=== PATIENT | female | born 1990 | race Caucasian/White ===

== ENCOUNTER 2020-01-09 00:05 | Inpatient (IN) | payer BC ==
[~2020-01-09] VITALS: Ht 163.8 cm; Wt 109.3 kg
--- NOTE | 2020-01-10 20:12 | NUR ---
01/10/202011 Yamil Tellez FBC RN IN ROOM AT ALL TIMES WITH THIS RN WHILE DOING ASSESMENTS. C/O DIZZYNESS AND LOW BLOOD PRESSURE RESOLVED AT TIME OF TRANSFER OF CARE. FBC RN ASSUMED CARE.
--- NOTE | 2020-01-11 15:19 | PR ---
[facility] [address] [facility] [place], [place] [address] Signed PP Progress Notes Datetime Report Generated by CPN: 01/11/2020 10:34 SUBJECTIVE: [id number] Pain: Within Normal Limits Nausea/Vomiting: Denies Flatus: No Bowel Movement: No Vital Signs: [id number] Cardiovascular: Normal Respiratory: Normal Abdomen/Uterus: Normal Lochia: Normal Extremities: Normal Incision: Normal Progress: Normal Exam Comments: RRR, 1+ pitting BLLE edema No dyspnea FF below U Incision c/d/i, no erythema, telfa in place IMPRESSION/PLAN/PROCEDURES: [id number] Impression: Normal Progression Plan: Continue Present Management Procedures: Rhogam Progress Notes: *POD#1 s/p PLTCS for intolerance to labor remote from delivery Progressing well post-op Scales still in place, anticipate ambulation/scales removal/voiding trial later today Tolerating regular diet Lochia light Incision healing well Pain well controlled with orals -Encourage ice to incision *Acute blood loss anemia on chronic anemia of Asymptomatic, VSS -Anticipate oral iron supplementation once having BM *O neg maternal blood type Baby O positive -Anticipate rhogam today GDM - well controlled on insulin -follow-up glucose tolerance test 6 wk PP *Electronically Signed* 01/11/20 1034 MARIIA CRISTOBAL DO PATIENT NAME: YOKO CARABALLO PROGRESS NOTE DATE OF : [birth year] PHYSICIAN: MARIIA CRISTOBAL DO RPT #: [id number] REPORT IS CONFIDENTIAL AND NOT TO BE RELEASED WITHOUT AUTHORIZATION [facility] [address] [place], [place] [address] Signed Signing Physician: Mariia Cristobal DO Copies: ~ *Electronically Signed* 01/11/20 1034 MARIIA CRISTOBAL DO PATIENT NAME: YOKO CARABALLO PROGRESS NOTE DATE OF : [birth year] PHYSICIAN: MARIIA CRISTOBAL DO RPT #: [id number] REPORT IS CONFIDENTIAL AND NOT TO BE RELEASED WITHOUT AUTHORIZATION
--- NOTE | 2020-01-12 11:18 | PR ---
[facility] [address] [place], [place] [address] Signed PP Progress Notes Datetime Report Generated by CPN: 01/12/2020 11:18 SUBJECTIVE: [id number] Pain: Within Normal Limits Nausea/Vomiting: Denies Flatus: Yes Bowel Movement: Yes Vital Signs: [id number] Vital Signs: Reviewed; Within Normal Limits EXAM: Met Cardiovascular: Normal Respiratory: Normal Abdomen/Uterus: Normal Lochia: Normal Extremities: Normal Incision: Normal Progress: Normal Exam Comments: Doing well RRR No dyspnea Incision c/d/i, lalit in place FFBU Trace BLLE edema IMPRESSION/PLAN/PROCEDURES: [id number] Impression: Normal Progression Plan: Continue Present Management; Discharge Procedures: Rhogam Progress Notes: POD#2 s/p PLTCS for intolerance to labor remote from delivery GDM-insulin, well-controlled True knot in umbilical cord Acute blood loss anemia on chronic anemia of - asymptomatic -start oral iron now that she is having BM, discussed continuing bowel care while on oral iron Pt requesting DC to home. Anticipate DC to home tonight 48 hrs postop, pt may stay tonight if she changes her mind Signing Physician: Jeanette Cristobal DO *Electronically Signed* 01/12/20 1118 JEANETTE CRISTOBAL DO PATIENT NAME: YOKO CARABALLO PROGRESS NOTE DATE OF : [birth year] PHYSICIAN: JEANETTE CRISTOBAL DO RPT #: [id number] REPORT IS CONFIDENTIAL AND NOT TO BE RELEASED WITHOUT AUTHORIZATION [facility] [address] [place] [id number] Signed Copies: ~ *Electronically Signed* 01/12/20 1118 JEANETTE CRISTOBAL DO PATIENT NAME: YOKO CARABALLO PROGRESS NOTE DATE OF : [birth year] PHYSICIAN: JEANETTE CRISTOBAL DO RPT #: [id number] REPORT IS CONFIDENTIAL AND NOT TO BE RELEASED WITHOUT AUTHORIZATION
--- NOTE | 2020-01-13 03:26 | OR ---
[facility] [address] [place], [place] [address] Signed DATE OF OPERATION: 01/10/2020 SURGEON: Mariia Cristobal DO Electronically Signed By: MARIIA CRISTOBAL DO 01/13/20 0326 PATIENT NAME: YOKO CARABALLO OPERATIVE REPORT DATE OF : 88 REPORT #: [id number] PHYSICIAN: MARIIA CRISTOBAL DO PCP: KEE VU MD REPORT IS CONFIDENTIAL AND NOT TO BE RELEASED WITHOUT AUTHORIZATION [facility] [address] [place], [place] [address] Signed DREDGE MECHANIC: Quita Howe MD PREOPERATIVE DIAGNOSES: 1. intolerance to labor, remote from delivery. 2. Gestational diabetes, on insulin. 3. 39 weeks gestation. POSTOPERATIVE DIAGNOSES: 1. intolerance to labor, remote from delivery. 2. Gestational diabetes, on insulin. 3. 39 weeks gestation. 4. True knot in the umbilical cord. PROCEDURE: Primary low transverse section. ANESTHESIA: Epidural. EBL: 550 mL. LINES: None. DRAINS: Moreno catheter. SPECIMENS: 1. Placenta. 2. Segment of cord 3. Cord blood FINDINGS: Term viable female , weighing 7 pounds and 9 ounces, Apgars 8 and 9. True knot in the umbilical cord, body cord around infant, otherwise normal-appearing placenta, normal uterus, and bilateral tubes and ovaries. INDICATIONS: The patient is a 29-year-old , who presented to [facility] on 01/09/2020, Electronically Signed By: MARIIA CRISTOBAL DO 01/13/20 0326 PATIENT NAME: YOKO CARABALLO OPERATIVE REPORT DATE OF : [birth year] REPORT #: [id number] PHYSICIAN: MARIIA CRISTOBAL DO PCP: KEE VU MD REPORT IS CONFIDENTIAL AND NOT TO BE RELEASED WITHOUT AUTHORIZATION [address] [address] Signed for scheduled medical induction of labor for gestational diabetes, on insulin. She was induced with cervical ripening with Cytotec followed by amniotomy, followed by Pitocin. After initiation of Pitocin, it had to be turned off and restarted multiple times due to late, prolonged and variable decelerations. The patient did receive an epidural. Over the course of over 5 hours, she failed to make progress beyond 3.5 cm without an increase in station of head. Risks, benefits, and alternatives to primary cesarian were discussed with the patient and the father of the baby, who was also present at bedside and they elected to proceed with delivery. PROCEDURE IN DETAIL: The patient was taken to the operating room, where her epidural was bolused. She was given 2 g Ancef, 500 mg azithromycin, and 1 g of TXA preoperatively. She was placed in the supine position with leftward tilt and prepped and draped in normal sterile fashion. Adequate anesthesia was confirmed. Pfannenstiel incision was made with the scalpel and carried down to the underlying layer of fascia. The fascia was incised using scalpel in midline and extended laterally with Nation scissors. Superior margin of the fascia was grasped with Kochers and elevated, and underlying rectus muscle was dissected off bluntly and sharply with Nation scissors. In the similar fashion, the inferior margin was grasped with Kochers, elevated, and rectus was dissected off bluntly and sharply with Nation scissors. Peritoneum was entered bluntly at midline and extended vertically with lateral retraction. Nicolas retractor was positioned without difficulty and hysterotomy was made with a scalpel above the bladder reflection. Hysterotomy was extended laterally with superior and inferior traction. Infant's head was then easily and gently elevated to the hysterotomy and the infant was delivered atraumatically. Body cord was noted and a true knot was noted in the umbilical cord. The cord was immediately doubly clamped and cut and the baby was handed off to the waiting Nursery RN. A segment of cord was obtained and cord blood was collected for type and Nela. Placenta was removed with gentle traction on the umbilical cord and delivered easily. Uterus was cleared of membranes and hysterotomy was closed with 0 Monocryl in a running locked fashion. An imbricating layer of closure was then completed with with 0 Monocryl. Additional oozing was noted at the right apex of the incision. A ezkeum-eo-gwzdw stitch with 0 Monocryl was placed with resulting hemostasis noted. Gutters were cleared of clots and the pelvis was irrigated with warm sterile saline and hemostasis was again noted at the hysterotomy. Nicolas retractor was removed. ACell sheet was applied over the hysterotomy. Peritoneum was closed in a running fashion with 2-0 Vicryl. Rectus was reapproximated with 0 Vicryl in a simple interrupted fashion x3. Small bleeding vessels that were noted were cauterized with Bovie cautery and ACell powder was applied over the rectus muscle. The fascia was closed with 0 Vicryl in a running fashion with 2 pieces starting laterally at each apex Electronically Signed By: MARIIA CRISTOBAL DO 01/13/20 0326 PATIENT NAME: YOKO CARABALLO OPERATIVE REPORT DATE OF : 88 REPORT #: [id number] PHYSICIAN: MARIIA CRISTOBAL DO PCP: KEE VU MD REPORT IS CONFIDENTIAL AND NOT TO BE RELEASED WITHOUT AUTHORIZATION [facility] [address] [place], [place] [address] Signed and working towards midline in a running fashion. Subcutaneous vessels that were bleeding were cauterized with Bovie cautery and subcutaneous layer was reapproximated with 3-0 Vicryl in simple interrupted fashion. Skin was closed with skin clips. Uterus was creded with minimal bleeding and dilation to 3cm noted. The incision was dressed with telfa, ABD pad, and gauze padding. Sponge and instrument counts were correct x2. The patient tolerated procedure very well. Mother and baby were allowed to recover together in the labor room. Mariia Cristobal DO EMZ/MODL /[id number] Copies: ~ Electronically Signed By: MARIIA CRISTOBAL DO 01/13/20 0326 PATIENT NAME: YOKO CARABALLO OPERATIVE REPORT DATE OF : [birth year] REPORT #: [id number] PHYSICIAN: MARIIA CRISTOBAL DO PCP: KEE VU MD REPORT IS CONFIDENTIAL AND NOT TO BE RELEASED WITHOUT AUTHORIZATION
== END 2020-01-12 18:40 | disposition home or self-care (01) | DRG 787 ==
LOC: FBC 00:05
PROVIDERS: ADMIT Obstetrics & Gynecology; ATTEND Obstetrics & Gynecology
PROC: 3E0P7VZ Introduction of Hormone into Female Reproductive, Via Natural or Artificial Opening (ICD-10-PCS; 2020-01-09)
PROC: 10907ZC Drainage of Amniotic Fluid, Therapeutic from Products of Conception, Via Natural or Artificial Opening (ICD-10-PCS; 2020-01-10)
PROC: 10D00Z1 Extraction of Products of Conception, Low, Open Approach (ICD-10-PCS; principal; 2020-01-10 18:34)
PROC: 3E0234Z Introduction of Serum, Toxoid and Vaccine into Muscle, Percutaneous Approach (ICD-10-PCS; 2020-01-11)
DX: O24.424 Gestational diabetes mellitus in childbirth, insulin controlled (principal); D62 Acute posthemorrhagic anemia; O63.9 Long labor, unspecified; Z3A.39 39 weeks gestation of pregnancy; Z37.0 Single live birth; O76 Abnormality in fetal heart rate and rhythm complicating labor and delivery; O69.2XX0 Labor and delivery complicated by other cord entanglement, with compression, not applicable or unspecified; O99.02 Anemia complicating childbirth; D64.9 Anemia, unspecified; O26.893 Other specified pregnancy related conditions, third trimester; Z67.41 Type O blood, Rh negative; O36.63X0 Maternal care for excessive fetal growth, third trimester, not applicable or unspecified; O32.2XX0 Maternal care for transverse and oblique lie, not applicable or unspecified; O99.344 Other mental disorders complicating childbirth; F32.9 Major depressive disorder, single episode, unspecified; F41.9 Anxiety disorder, unspecified; Z79.899 Other long term (current) drug therapy
CPT/HCPCS: 01961; 36415; 83030; 85027; 86850; 86900; 86901; J1815; J1885; J2274; J2405; J2590; J2790; J2795; J3010; J7121

== ENCOUNTER 2022-01-19 21:14 | Emergency (ER) | payer BC ==
[~2022-01-19] VITALS: Ht 165.1 cm; Wt 110.1 kg
--- OUTSIDE RECORDS SUMMARY | 2022-01-19 21:16 | XMS ---
PreManage Notification: YOKO CARABALLO Security In Service Coordinator Events No recent Security Events currently on file CRITERIA MET - PDMP CARE PROVIDERS [facility] Current PHONE: [phone] Mariano has no Care Guidelines for this patient. EMelonie VISIT COUNT (12 MO.) 1 IZABEL Chaudhary TOTAL 1 NOTE: Visits indicate total known visits. ED/UCC VISIT TRACKING (12 MO.) 01/19/2022 21:14 IZABEL Juarez OR TYPE: Emergency COMPLAINT: - NAUSEA, DIARRHEA INPATIENT VISIT TRACKING (12 MO.) No inpatient visits to display in this time frame [email or web address]
[2022-01-19] MEDS ORDERED: ADDERALL 5 MG TA5 MG PO (21:37)
[2022-01-19] MEDS ORDERED: ADDERALL XR 2525 MG PO (21:37)
[2022-01-19] MEDS ORDERED: FLUOXETINE HCL40 MG PO (21:37)
[2022-01-19] MEDS ORDERED: ONDANSETRON ODT8 MG PO (23:19)
== END 2022-01-19 23:34 | disposition home or self-care (01) ==
LOC: ED 21:14
DX: K52.9 Noninfective gastroenteritis and colitis, unspecified (principal); F90.9 Attention-deficit hyperactivity disorder, unspecified type; Z79.899 Other long term (current) drug therapy
CPT/HCPCS: 36415; 80053; 83690; 83735; 84703; 85025; A9270; J2405; J7030

== ENCOUNTER 2025-01-14 19:00 | Observation (INO) | payer BC ==
[~2025-01-14] VITALS: Ht 165.1 cm; Wt 97.2 kg
[~2025-01-14 19:00] MED LIST: ADDERALL 5 MG TA5 MG PO; ADDERALL XR 2525 MG PO; FLUOXETINE HCL40 MG PO; ONDANSETRON ODT8 MG PO
[2025-01-14 21:12] LABS: BASOPHILS 0.3 % (0.1-1.2); EOSINOPHILS 0.1 % (0.7-5.8); LYMPHOCYTES 10.4 % (19.3-51.7); MCH 28.9 PG (25.6-32.2); MCHC 32.8 g/dL (32.2-35.5); MCV 88.3 fL (79.4-94.8); MONOCYTES 4.5 % (4.7-12.5); NEUTROPHILS 84.4 % (34.0-71.1); RBC 5.29 M/uL (3.93-5.22)
[2025-01-14] MEDS ORDERED: MORPHINE SULFATE 4 MG/ML VIAL IV ONE (21:15)
[2025-01-14] MEDS ORDERED: SODIUM CHLORIDE 0.9% 1,000 ML IV ONE (21:15)
[2025-01-14 21:22] LABS: ALT (SGPT) 83.0 U/L (14-59); AST (SGOT) 128.0 U/L (15-37); GLOMERULAR FILTRATION RATE,EST 88.0 mL/min (>60); PROTEIN, TOTAL 8.8 g/dL (6.4-8.2); UREA NITROGEN 10.0 mg/dL (7-18)
[2025-01-14] MEDS ORDERED: DEXTROSE 5% - LACTATED RINGERS 1,000 ML IV SCH (23:00)
[2025-01-14] MEDS ORDERED: CEFAZOLIN SODIUM 2 GM in SODIUM CHLORIDE 0.9% 100 ML IV SCH (23:00)
[2025-01-14] MEDS ORDERED: FAMOTIDINE 20 MG/ 2 ML VIAL IV SCH (23:00)
[2025-01-14] MEDS ORDERED: ACETAMINOPHEN 325 MG TAB PO PRN (23:00)
[2025-01-14] MEDS ORDERED: HYDROmorphone HCL 1 MG/ML SYR IV PRN (23:00)
[2025-01-14 23:54] VITALS: BP 117/61
[2025-01-15] VITALS (9 sets, daily range): BP systolic 111–129; BP diastolic 71–81
--- NOTE | 2025-01-15 00:35 | NUR ---
pt ARRIVES TO NM VIA WHEELCHAIR. INDEPENDENT TO AMBULATE TO RESTROOM FOR ORAL CARE. BACK TO BED. IV FLUSHED WNL, IVF INFUSING. RT IN ROOM SETTING UP CPAP. ORIENTATION TO ROOM PROVIDED. CALL LIGHT AND PERSONAL SUPPLIES WITHIN REACH.
--- NOTE | 2025-01-15 00:56 | NUR ---
THIS RN TO ED TO TRANSPORT PT VIA AT APPROX 2350. PT ALERT AND ORIENTED. PT ABLE TO TRANSFER SELF TO BED. GUITAR INSTRUCTOR IN FOR ADMISSION. ADMISSION ASSESSMENT COMPLETE. PT REPORTS ABD PAIN TOLERABLE 2/10 AT THIS TIME. DENIES NAUSEA. PT NPO. VERBALIZES UNDERSTANDING. IVF INFUSING WNL. ORAL CARE SUPPLIES PROVIDED. PT ORIENTED TO ROOM AND NURSE CALL LIGHT. PT DENIES QUESTIONS OR CONCERNS. CALL LIGHT IN REACH.
--- NOTE | 2025-01-15 01:15 | NUR ---
URINE SAMPLE COLLECTED AND SENT TO LAB.
[2025-01-15 01:24] LABS: BLOOD/HGB, URINE NEGATIVE (Negative); KETONE, URINE NEGATIVE (Negative); LEUK ESTERASE, URINE NEGATIVE (negative); NITRITE, URINE NEGATIVE (negative)
--- NOTE | 2025-01-15 01:45 | NUR ---
PT UNABLE TO TOLERATE HOSPITAL CPAP MASK. O2 2L/NC PLACED. RT AWARE. NO FURTHER NEEDS. CALL LIGHT IN REACH.
--- NOTE | 2025-01-15 04:12 | NUR ---
PT AWAKE IN BED TALKING ON PHONE. DENIES PAIN OR NAUSEA. VS AND I&O OBTAINED. NO NEEDS AT THIS TIME. CALL LIGHT IN REACH.
[2025-01-15 05:26] LABS: BASOPHILS 0.4 % (0.1-1.2); EOSINOPHILS 0.3 % (0.7-5.8); LYMPHOCYTES 25.8 % (19.3-51.7); MCH 29.3 PG (25.6-32.2); MCHC 32.8 g/dL (32.2-35.5); MCV 89.3 fL (79.4-94.8); MONOCYTES 5.7 % (4.7-12.5); NEUTROPHILS 67.7 % (34.0-71.1); RBC 4.30 M/uL (3.93-5.22)
[2025-01-15 05:42] LABS: ALT (SGPT) 131.0 U/L (14-59); AST (SGOT) 113.0 U/L (15-37); GLOMERULAR FILTRATION RATE,EST 93.0 mL/min (>60); PROTEIN, TOTAL 6.6 g/dL (6.4-8.2); UREA NITROGEN 8.0 mg/dL (7-18)
--- NOTE | 2025-01-15 05:42 | NUR ---
CALL LIGHT ANSWERED. QUESTIONS ANSWERED REGARDING PLAN OF CARE. PT DENIES PAIN OR NAUSEA. IV ABX INFUSING PER ORDER. PT REMAINS NPO. ORAL CARE SUPPLIES AT BEDSIDE. NO FURTHER NEEDS. CALL LIGHT IN REACH.
--- NOTE | 2025-01-15 07:15 | NUR ---
RECEIVED REPORT FROM SABRA TORIBIO. PT SITTING UP IN BED ASKING ABOUT MORNING LABS, PT TOLD WHAT THEY WERE. NO OTHER NEEDS AT THSI TIME, CALL LIGHT IN REACH, WHITEBOARD UPDATED.
[2025-01-15] MEDS ORDERED: FAMOTIDINE 20 MG/ 2 ML VIAL IV SCH (09:27)
[2025-01-15] MEDS ORDERED: LACTATED RINGER'S 1,000 ML IV SCH (09:30)
[2025-01-15] MEDS ORDERED: CEFAZOLIN SODIUM 2 GM in SODIUM CHLORIDE 0.9% 100 ML IV SCH (09:30)
[2025-01-15] MEDS ORDERED: SODIUM CHLORIDE 0.9% 40 ML IV ONE (09:41)
--- NOTE | 2025-01-15 09:41 | NUR ---
THIS RN SIGNS CONSENT FORM WITH PT. PT VERBALIZES UNDERSTANDING OF PROCEDURE WITH DR. BOOTH AT BEDSIDE. PT TO RESTROOM INDEPENDENTLY TO COMPLETE PRE-OP [place], CLOTHES AND JEWELRY REMOVED. PT STATES NO FURTHER NEEDS AT THIS TIME. CALL LIGHT WITHIN REACH.
--- NOTE | 2025-01-15 09:50 | NUR ---
UR CLINICAL REVIEW: [facility] REVIEW MEETS OBS FOR CHOLECYSTITIS WITH NEED FOR PAIN MANAGMENT AND POSSIBLE SURGICAL PROCEDURE MOISES MARTELL OBS 01/14/25 @ 1904 ORDER MATCHES REG NO AUTH REQUIRED FOR OBS VISIT PER GUIDELINES DICHARGE TO HOME FOLLOWING PROCEDURE 01/16/25
--- NOTE | 2025-01-15 09:57 | NUR ---
IN TO COMPLETE CM ASSESSMENT, PATIENT OFF UNIT TO DAYSURGERY AT THIS TIME
[2025-01-15] MEDS ORDERED: fentaNYL citrate 100 MCG/2 ML VIAL ONE ×2 (10:00→11:07)
[2025-01-15] MEDS ORDERED: MIDAZOLAM HCL 2 MG/2 ML VIAL ONE (10:01)
[2025-01-15] MEDS ORDERED: DEXAMETHASONE SOD PHOS 4 MG/ML VIAL ONE (10:36)
[2025-01-15] MEDS ORDERED: KETOROLAC TROMETHAMINE 30 MG/ML VIAL ONE (10:36)
[2025-01-15] MEDS ORDERED: ACETAMINOPHEN 1,000 MG/100 ML VIAL ONE (10:40)
[2025-01-15] MEDS ORDERED: ROCURONIUM BROMIDE 50 MG/5 ML SYR ONE (11:08)
[2025-01-15] MEDS ORDERED: SUGAMMADEX SODIUM 200 MG/2 ML ML ONE (11:42)
--- NOTE | 2025-01-15 11:51 | NUR ---
01/15/25 1151 Heather Banegas 1147: PT ARRIVES TO PACU REACTIVE WITH AN ORAL AIRWAY IN PLACE. REPROT RECEVIED FROM VISITOR SERVICES ASSISTANT AND FIELD MARKETING TEAM LEADER.
[2025-01-15] MEDS ORDERED: TYLENOL EXTRA500 MG PO (11:54)
[2025-01-15] MEDS ORDERED: PERCOCET 7.5-31 EACH PO (11:54)
[2025-01-15] MEDS ORDERED: MOTRIN IB200 MG PO (11:54)
[2025-01-15] MEDS ORDERED: ACETAMINOPHEN 500 MG TAB PO PRN (12:30)
[2025-01-15] MEDS ORDERED: OXYCODONE/APAP 7.5/325 TAB PO PRN (12:30)
[2025-01-15] MEDS ORDERED: IBUPROFEN 600 MG TAB PO PRN (12:30)
--- NOTE | 2025-01-15 12:48 | NUR ---
MED REC COMPLETE
[2025-01-15] MEDS ORDERED: OZEMPIC0.25 MG/02 SUB-Q (12:50)
--- NOTE | 2025-01-15 13:25 | NUR ---
PT AMBULATED TO THE BATHROOM WITH SBA AND LINE MANAGEMENT, REPORTS NAUSEA W/ MOVEMENT BUT DECLINED ZOFRAN. PT REPORTS NAUSEA SUBSIDED WHEN LAYING BACK DOWN, NO OTHER NEEDS AT THIS TIME, CALL LIGHT IN REACH.
[2025-01-15] MEDS ORDERED: SEVOFLURANE 250 ML BTL INH ONE (16:29)
[2025-01-15] MEDS ORDERED: OXYCODONE/ACETAMINOPHEN 1 TAB HOME.PACK PO ONE (19:45)
--- NOTE | 2025-01-15 19:49 | NUR ---
IN ROOM TO ASSIST pt WITH PACKING PERSONAL BELONGINGS FOR DISCHARGE. pt ANXIOUS REGARDING HOME PRESCRIPTION PHARMACY IS CLOSED, WORRIED HER PAIN WILL GET WORSE. RATES PAIN 4/10 IN ABDOMEN. LAP SITE ASSESSED, SS DRAINAGE FROM MID UMBILICUS, REINFORCED WITH GAUZE. EDUCATION PROVIDED. PHONE CALL TO , NEW ORDER RECEIVED FOR TAKE HOME PACK. TO DC HOME PRESCRIPTION WE WILL FILL FROM OUR PHARMACY. REPEATED BACK. CEMETERY WORKER NOTIFIED OF NEED FOR HOME PACK.
--- NOTE | 2025-01-15 20:05 | NUR ---
PRN PERCOCET ADMINISTERED FOR 4/10 ABDOMINAL PAIN. ICE PACK PROVIDED. EDUCATION PROVIDED REGARDING USING PERCOCET FOR BREAKTHROUGH PAIN. pt VERBALIZES UNDERSTANING. STICKY NOTE PROVIDED WITH NEXT TIMES FOR MOTRIN AND TYLENOL ADMINISTRATION AT HOME. TAKE HOME PACK PROVIDED TO pt WITH WRITTEN EDUCATION. DISCUSSED SIDE EFFECTS OF MEDICATION. QUESTIONS ANSWERED. WHEELCHAIR TO FRONT OF HOSPITAL TO PRIVATE AUTO.
--- NOTE | 2025-01-17 09:37 | PATH ---
[facility] [address] [facility] [place], [place] [address] Signed SPECIMEN(S): A GALLBLADDER AND STONES SPECIMEN SOURCE: A. GALLBLADDER AND STONES CLINICAL HISTORY: Cholecystitis FINAL PATHOLOGIC DIAGNOSIS: Gallbladder and stones: - Chronic cholecystitis - Cholelithiasis BB MICROSCOPIC EXAMINATION: Histologic sections of all submitted blocks are examined by light microscopy. These findings, together with the gross examination, support the pathologic diagnosis. GROSS DESCRIPTION: The specimen, labeled and designated "Donald, gallbladder and stones," is received in formalin and consists of Specimen: Previously opened gallbladder. Dimensions: 7.8 x 2.5 x 2.0 cm. Serosa: Green-brewer and smooth. Cystic Duct: Unobstructed, margin inked black and shaved. Calculi: Multiple yellow-brewer rounded/bosselated calculi (0.1-0.5 cm in greatest dimension, and 4.0 x 2.0 x 1.0 cm in aggregate). Mucosa: Yellow-green and velvety with yellow flecking. Wall thickness: 0.2-0.4 cm. Lymph node: No pericystic lymph nodes are grossly identified. Additional: None. Command Post Craftsman sections are submitted in (A1). VB (under the direct supervision of a pathologist) The Gross Description was prepared using a voice recognition system. The report was reviewed for accuracy; however, sound-alike word errors, addition and/or deletions may occur. If there is any question about this report, please contact Client Services. ADDITIONAL NOTES: Immunohistochemical and/or in situ hybridization studies if performed in this PATIENT NAME: YOKO CARABALLO PATHOLOGY DATE OF : [birth year] REPORT #: [id number] PHYSICIAN: KINSEY GANT PCP: KEE VU MD REPORT IS CONFIDENTIAL AND NOT TO BE RELEASED WITHOUT AUTHORIZATION [facility] [address] [place], [place] [address] Signed case included appropriate positive controls that reacted as expected. This test was developed and its performance characteristics determined by [facility]. It has not been cleared or approved by the U.S. Food and Drug Administration. The FDA has determined that such clearance or approval is not necessary. This test is used for clinical purposes. It should not be regarded as investigational or for research. [facility] is certified under the Clinical Laboratory Improvement Amendments of 1988 (CLIA) as qualified to perform high complexity clinical laboratory testing. PERFORMING LABORATORY: Technical component was performed by [facility], [address] [place] [address] (CLIA# [id number]). Professional interpretation was performed by [facility] [place] [address] (CLIA#: [id number]). Diagnostician: Kyaw Hayes MD Pathologist Electronically Signed 01/17/2025 Copies: ~ PATIENT NAME: YOKO CARABALLO PATHOLOGY DATE OF : [birth year] REPORT #: [id number] PHYSICIAN: KINSEY GANT PCP: KEE VU MD REPORT IS CONFIDENTIAL AND NOT TO BE RELEASED WITHOUT AUTHORIZATION
--- NOTE | 2025-01-18 11:43 | HP ---
[facility] [address] [place], [place] [address] Signed ADMISSION DATE: 01/14/2025 REASON FOR ADMISSION: Acute calculous cholecystitis. HISTORY OF PRESENT ILLNESS: This 34-year-old white woman presented to the emergency room last night at approximately 11 o'clock complaining of epigastric and right upper abdominal pain, which began early in the day. She has had episodes of similar, but not as severe pain previously. Evaluation by Dr. Brooks included a CT scan of the abdomen, which confirmed gallstones and some dilation of the gallbladder, but no sign of thickening or pericholecystic fluid. White count was elevated to with hematocrit of 46.7, platelets normal at 504, and normal liver enzymes overall. Lipase was normal at 38. Bilirubin was 0.8, alkaline phosphatase 93, ALT was 83 and AST 128. She is directly admitted to the hospital, given intravenous antibiotics and bowel rest and is feeling better at this time. PAST MEDICAL HISTORY: Notable primarily for in the past. She has no chronic ongoing medical problems. Takes no medications on a daily basis. She is and has one child. She works locally. REVIEW OF SYSTEMS: She denies any shortness of breath or chest pain. She has had no dysphagia, dysuria, hematemesis, or hematuria. PHYSICAL EXAMINATION: GENERAL: Pleasant white woman who is accompanied by her mother at this time. VITAL SIGNS: Weight is 199 kg, height 5 feet 5 inches, BMI is 35.7. HEENT: Trachea is midline. There is no palpable mass. CHEST: Clear. HEART: Regular without murmur. ABDOMEN: Obese, but soft. There is only mild tenderness at this time in the right subcostal area. EXTREMITIES: Show no clubbing, cyanosis, or edema. LAB STUDIES: As noted, include an initial white count of 18.4, now 9.0, hematocrit 46.7, now 38.4, platelets are in the 50,000. Her Chem profile is now reasonably normal. Glucose is Electronically Signed By: YRN BOOTH MD 01/18/25 1143 PATIENT NAME: YOKO CARABALLO HISTORY AND PHYSICAL DATE OF : [birth year] REPORT #: [id number] PHYSICIAN: YRN BOOTH MD PCP: KEE VU MD REPORT IS CONFIDENTIAL AND NOT TO BE RELEASED WITHOUT AUTHORIZATION [facility] [address] [place], [place] [address] Signed 114. AST 113, ALT 131, alkaline phosphatase 70, bilirubin is 0.6. Beta HCG is negative. Urinalysis is normal. ASSESSMENT: The patient has acute calculous cholecystitis. I have reviewed her CT scan. I do not feel there is any added benefit of an ultrasound at this point. Interpretation of the CT scan was reviewed, which showed gallstones without CT evidence of acute cholecystitis. Clinically, she did have that and does have that to a lower grade now. I discussed the pathophysiology of biliary disease with her in detail and I have recommended cholecystectomy preferred by laparoscopic approach. The risk of bleeding, infection, bile duct injury, need for open procedure, need for common duct exploration and other unforeseen issues was reviewed in detail. She understands and agrees to proceed. All questions were answered. PLAN: We will plan for cholecystectomy this morning, the first available OR time. Yrn Booth MD JM/MODL /[id number] cc: MD Dr. Cecilia Ocampo Copies: KEE VU DMD ~ Electronically Signed By: YRN BOOTH MD 01/18/25 1143 PATIENT NAME: YOKO CARABALLO HISTORY AND PHYSICAL DATE OF : 88 REPORT #: [id number] PHYSICIAN: YRN BOOTH MD PCP: KEE VU MD REPORT IS CONFIDENTIAL AND NOT TO BE RELEASED WITHOUT AUTHORIZATION
--- NOTE | 2025-01-18 11:43 | OR ---
[facility] [address], [place] [address] Signed DATE OF OPERATION: 01/15/2025 SURGEON: Yrn Booth MD PREOPERATIVE DIAGNOSES: 1. Acute calculous cholecystitis. 2. Obesity. POSTOPERATIVE DIAGNOSES: 1. Acute calculous cholecystitis. 2. Obesity. PROCEDURES: 1. Laparoscopic cholecystectomy with intraoperative cholangiogram. 2. Surgeon-directed fluoroscopy. ANESTHESIA: General endotracheal; Isadora Rangel CRNA and local 10 mL of 0.25% Marcaine with epinephrine. INDICATION: This 34-year-old white woman is a patient DrYves Vu. She presented to the emergency room late last night with right upper abdominal pain highly typical of acute cholecystitis. She was evaluated by Dr. Brooks, which included a CT scan of the abdomen. This demonstrated stones, but no thickening of the gallbladder. She had tenderness and an elevated white count and was treated with antibiotics, IV fluids, and bowel rest. Evaluation today shows her to be improved in her symptoms, but still with some tenderness and diagnosis of acute calculous cholecystitis. I have recommended cholecystectomy preferred by laparoscopic approach. The risk of bleeding, infection, bile duct injury, need for open operation, need for common duct exploration were all reviewed with her. She understands and wished to proceed. FINDINGS: Indeed the gallbladder was inflamed and edematous. It was distended as well. Cholangiogram was normal; there was a relatively large cystic duct noted. There was no sign of common duct stones. The liver was reasonably normal despite obesity. The gallbladder once opened had multiple yellow gallstones and thick sludge-like material and cholesterolosis of the mucosa. There were no other findings of note. DESCRIPTION OF PROCEDURE: Electronically Signed By: YRN BOOTH MD 01/18/25 1143 PATIENT NAME: YOKO CARABALLO OPERATIVE REPORT DATE OF : 88 REPORT #: [id number] PHYSICIAN: YRN BOOTH MD PCP: KEE VU MD REPORT IS CONFIDENTIAL AND NOT TO BE RELEASED WITHOUT AUTHORIZATION [facility] [address], [place] [address] Signed The patient was brought to the operating room, given a general endotracheal anesthetic. Preoperative antibiotic Ancef had been given. Sequential compression device stockings used and heparin subcutaneously administered. The abdomen was prepared with a chlorhexidine solution and draped sterilely. An infraumbilical incision was made and using an open Magen cannula technique, pneumoperitoneum was achieved to a level of 14 mmHg of carbon dioxide gas. Intra-abdominal inspection showed no sign of ascites or carcinomatosis. The gallbladder apex was quite distended and edematous. The liver had mild fatty infiltration, but not as much as expected. Three additional trocars were placed in usual configuration in the subxiphoid, right midclavicular, and right anterior axillary line. The gallbladder was elevated cephalad and retracted laterally and using blunt and electrocautery dissection, the triangle of Calot was dissected free. Cystic arterial branch was secured with clips. A clip was applied across gallbladder cystic duct junction and transverse choledochotomy made in the cystic duct. Egress of clear bile was noted. Using an Quigley type cholangiocatheter, intraoperative cholangiography was undertaken showing free flow of contrast in the biliary tree with prompt emptying into the duodenum. There was no sign of biliary anomaly. The cystic duct was relatively long and relatively wider than generally. The cystic duct was secured with clips and divided. The gallbladder was dissected free in a retrograde fashion using electrocautery. Gallbladder was placed in an endobag and extracted through the infraumbilical port site without problem and opened on the back table and found to have multiple yellow gallstones, thick mucoid like sludge and cholesterolosis. There was no sign of neoplasm. Irrigation was undertaken of the subhepatic space. There was good hemostasis. Excess irrigation fluid was suctioned free. The trocars removed under direct visualization showing no significant bleeding. Cautery was used as necessary. Plans were then made for closure. The infraumbilical fascial incision was reapproximated with interrupted 0 Vicryl suture. 10 mL of 0.25% Marcaine with epinephrine was injected locally. The skin was closed with interrupted 3-0 Vicryl. Steri-Strips were applied. The patient was extubated and transferred to the recovery room in good condition having suffered no complications. Sponge, needle, and instrument counts were reported as correct x3. Yrn Booth MD /MODL /[id number] Electronically Signed By: YRN BOOTH MD 01/18/25 1143 PATIENT NAME: YOKO CARABALLO OPERATIVE REPORT DATE OF : 88 REPORT #: [id number] PHYSICIAN: YRN BOOTH MD PCP: KEE VU MD REPORT IS CONFIDENTIAL AND NOT TO BE RELEASED WITHOUT AUTHORIZATION [address] [address] Signed cc: DO Chantal Ronquillo MD Copies: KEE VU DMD ~ Electronically Signed By: YRN BOOTH MD 01/18/25 1143 PATIENT NAME: YOKO CARABALLO OPERATIVE REPORT DATE OF : [birth year] REPORT #: [id number] PHYSICIAN: YRN BOOTH MD PCP: KEE VU MD REPORT IS CONFIDENTIAL AND NOT TO BE RELEASED WITHOUT AUTHORIZATION
== END 2025-01-15 20:05 | disposition home or self-care (01) ==
LOC: ED 19:00 → MS 19:04
PROVIDERS: Family Medicine; ADMIT Surgery; ATTEND Surgery
PROC: BF10YZZ Fluoroscopy of Bile Ducts using Other Contrast (ICD-10-PCS; 2025-01-15)
PROC: 0FT44ZZ Resection of Gallbladder, Percutaneous Endoscopic Approach (ICD-10-PCS; principal; 2025-01-15 10:00)
DX: K80.12 Calculus of gallbladder with acute and chronic cholecystitis without obstruction (principal); F90.9 Attention-deficit hyperactivity disorder, unspecified type; E66.9 Obesity, unspecified; Z68.35 Body mass index [BMI] 35.0-35.9, adult
CPT/HCPCS: 00790; 36415; 74177; 74300; 80053; 81003; 83690; 83735; 84703; 85025; 94660; 96361; 96365; 96374; 96375; 96376; 99285-25; A9270; G0378; J0131; J0688; J1100; J1171; J1885; J2250; J2270; J2405; J3010; J3490; J7030; J7121; Q9967